=== PATIENT | female | born 1985 | race Two or more races ===

== ENCOUNTER 2020-02-18 14:30 | Inpatient (IN) | payer OTHER ==
[~2020-02-18] VITALS: Ht 172.7 cm; Wt 73.9 kg
[2020-02-26] MEDS ORDERED: FOLIC ACID0.8 M1 PO (03:11)
[2020-02-26] MEDS ORDERED: PRENATAL TABLE1 EAC1 PO (03:11)
== END 2020-02-28 10:30 | disposition home or self-care (01) | DRG 807 ==
LOC: OB/GYN 02-26 03:07 → LDR 02-26 03:07 → OB/GYN 02-26 10:49
PROVIDERS: ADMIT Obstetrics & Gynecology; ATTEND Obstetrics & Gynecology
PROC: 10E0XZZ Delivery of Products of Conception, External Approach (ICD-10-PCS; principal; 2020-02-26)
PROC: 0W8NXZZ Division of Female Perineum, External Approach (ICD-10-PCS; 2020-02-26)
PROC: 4A1HXFZ Monitoring of Products of Conception, Cardiac Rhythm, External Approach (ICD-10-PCS; 2020-02-26)
DX: O80 Encounter for full-term uncomplicated delivery (principal); Z37.0 Single live birth; Z3A.39 39 weeks gestation of pregnancy

== ENCOUNTER 2020-02-26 01:07 | Outpatient (CLI) | payer OTHER ==
[2020-02-26] MEDS ORDERED: PRENATAL TABLE1 EAC1 PO (03:11)
[2020-02-26] MEDS ORDERED: FOLIC ACID0.8 M1 PO (03:11)
== END 2020-02-26 10:49 | disposition still patient (30) ==
LOC: OBS/DEL 01:07
PROVIDERS: ATTEND Obstetrics & Gynecology
DX: O47.1 False labor at or after 37 completed weeks of gestation (principal); Z20.828 Contact with and (suspected) exposure to other viral communicable diseases